=== PATIENT | male | born 1980 | race African-American/Black ===

== ENCOUNTER 2020-11-27 01:40 | Emergency (ER) | payer MEDICAID ==
[~2020-11-27] VITALS: Ht 172.7 cm; Wt 95.0 kg
[2020-11-27] MEDS ORDERED: ASPIRIN 81MG TABLET PO ONE (02:15)
[2020-11-27 02:30] LABS: BASOPHILS % 0.9 % (0.0-2.0); EOSINOPHILS % 2.7 % (0.0-5.0); HEMATOCRIT. 40.6 % (42.0-52.0); HEMOGLOBIN. 13.9 g/dL (14.0-18.0); LYMPHOCYTES % 38.8 % (20.0-50.0); MEAN CORPUSCULAR HEMOGLOBIN 30.2 pg (28.0-32.0); MEAN CORPUSCULAR VOLUME 88.4 fL (80.0-94.0); MEAN PLATELET VOLUME 9.5 fl (7.4-10.4); MONOCYTES % 6.9 % (2.0-8.0); NEUTROPHILS % 50.7 % (40.0-76.0); PLATELET 200 x1000/uL (130-400); RED BLOOD CELL COUNT 4.59 mill/uL (4.7-6.1); RED CELL DISTRIBUTION WIDTH 12.6 % (11.6-14.6)
[2020-11-27] MEDS: NITROGLYCERIN 0.4MG TABLET SL SL PRN ×3 (02:34→02:48)
[2020-11-27 02:37] LABS: CHLORIDE 102 mEq/L (98-107)
[2020-11-27] MEDS ORDERED: ACETAMINOPHEN 500MG TABLET PO ONE (03:00)
[2020-11-27 05:15] VITALS: BP 153/88
== END 2020-11-27 05:32 | disposition home or self-care (01) ==
LOC: ER 01:40
DX: R07.89 Other chest pain (principal)
CPT/HCPCS: 36415; 71045; 80053; 83880; 84484; 85025; 93005; 99285; Z7610